=== PATIENT | female | born 1950 | race Caucasian/White ===

== ENCOUNTER 2017-08-13 02:18 | Emergency (ER) | payer MEDICARE ==
[~2017-08-13] VITALS: Ht 157.5 cm; Wt 68.7 kg
[~2017-08-13 02:18] MED LIST: SYMB160A INH
[2017-08-13 02:23] VITALS: BP 212/86; PULSE 92; RESP 14; TEMP 97.7; O2SAT 95
[2017-08-13] MEDS ORDERED: predniSONE 20 MG TAB PO ONE (02:30)
--- NOTE | 2017-08-13 02:34 | PD ---
HPI Chief Complaint: Shortness of breath Time Seen by Provider: 02:25 Travel History International Travel<30 days: No Contact w/Intl Traveler<30days: No Traveled to known affect area: No History of Present Illness HPI The patient is a 67-year-old female who presents to the emergency department for shortness of breath, cough, wheezing, and possible bronchitis. The patient has a history of COPD, states her recently had an upper respiratory infection which she recently caught. The patient now complains of productive cough producing white sputum, wheezing, and shortness of breath. The patient does have a history of bronchitis with similar symptoms in the past. The patient does have a history of COPD and tobacco use, last cigarette was at 7 PM. She denies any fever, chills, or sweats. She did receive an influenza vaccination this year. She denies any history of congestive heart failure. The patient's primary physician is Dr. Monse Dhaliwal. PFSH Past Medical History Cancer: No Cardiovascular Problems: No COPD: Yes Diabetes: No Diminished Hearing: No Endocrine: No Gastrointestinal Disorders: Yes (GERD) Glaucoma: No Genitourinary: No Hepatitis: No Hiatal Hernia: Yes Hypertension: No Immune Disorder: No Musculoskeletal: No Neurologic: No Psychiatric: No Reproductive: No Respiratory: Yes (COPD) Thyroid Disease: No Menopausal: Yes Past Surgical History Abdominal Surgery: Yes (CHOLECYSTECTOMY) AICD: No Appendectomy: Yes Cholecystectomy: Yes Gynecologic Surgery: Yes (HYSTERECTOMY) Hysterectomy: Yes Joint Replacement: No Oral Surgery: Yes (POLYP EXCISED FROM LARYNGOSCOPY) Pacemaker: No Tonsillectomy: Yes Other Surgery: Yes (BREAST BX) Social History Alcohol Use: Yes (1 GLASS OF WINE A DAY) Tobacco Use: Yes (1PPD) Substance Use: No Allergies-Medications (Allergen,Severity, Reaction): Coded Allergies: penicillin G (Unverified Allergy, Severe, HIVES, 08/13/17) codeine (Unverified Allergy, Intermediate, N&V, 08/13/17) Reported Meds & Prescriptions Reported Meds & Active Scripts Active Symbicort Inh (Budesonide/Formoterol Fumarate) 160-4.5 Mcg/Act Aero 2 Puff INH DAILY Review of Systems Except as stated in HPI: all other systems reviewed are Neg General / Constitutional: No: Fever HENT: Positive: Congestion Cardiovascular: No: Chest Pain or Discomfort Respiratory: Positive: Cough, Shortness of Breath, Wheezing Gastrointestinal: No: Nausea, Vomiting Musculoskeletal: No: Myalgias, Edema Physical Exam Narrative GENERAL: Awake, alert, nontoxic-appearing 67-year-old female who appears her stated age and is in no acute respiratory distress. SKIN: Focused skin assessment warm/dry. HEAD: Atraumatic. Normocephalic. EYES: No injection or drainage. NECK: Trachea midline. No JVD. CARDIOVASCULAR: Regular rate and rhythm. No murmur appreciated. RESPIRATORY: No accessory muscle use. Prolonged expiratory phase with a few scattered wheezes. MUSCULOSKELETAL: No obvious deformities. No clubbing. No cyanosis. No edema. NEUROLOGICAL: Awake and alert. No obvious cranial nerve deficits. Motor grossly within normal limits. Normal speech. PSYCHIATRIC: Appropriate mood and affect; insight and judgment normal. Data Data Last Documented VS Vital Signs Date Time Temp Pulse Resp B/P (MAP) Pulse Ox O2 Delivery O2 Flow Rate FiO2 08/13/17 02:47 82 20 138/92 (107) 97 08/13/17 02:23 97.7 Orders Orders Oximetry (08/13/17 02:30) Chest, Single Ap (08/13/17 02:30) Albuterol-Ipratropium Neb (Duoneb Neb) (08/13/17 02:30) Prednisone (Deltasone) (08/13/17 02:30) Polymyxin/Trimethop Opht Soln (Polytrim (08/13/17 03:45) MDM Medical Decision Making Medical Screen Exam Complete: Yes Emergency Medical Condition: Yes Medical Record Reviewed: Yes Interpretation(s) Chest x-ray reveals hyperinflation which can be seen with COPD. Chronic bibasilar densities. Differential Diagnosis Differential diagnosis includes COPD exacerbation, bronchitis, pneumonia, congestive heart failure, pleural effusion, pulmonary edema, pulmonary embolism , URI. Narrative Course The patient was administered prednisone 60 mg orally and duo nebs 2. Chest x- ray was obtained. Chest x-ray revealed hyperinflation which can be seen with COPD, chronic bibasilar densities, no acute findings. The patient was reevaluated after nebulizers at 3:36 AM. The patient's symptoms have improved. The patient will be discharged home on prednisone, Zithromax, she states she rarely has a pro-air inhaler at home. She is advised to follow-up with her primary physician. Return if symptoms worsen or progress. Diagnosis Primary Impression: Bronchitis Patient Instructions: General Instructions Additional Instructions: Medications as directed. Please provide the patient a copy of her x-ray results at discharge. Follow-up with your primary physician. Use inhalers at home. Return if symptoms worsen or progress. Med/Other Pt SpecificInfo: Prescription(s) given Scripts Prednisone (Prednisone) 20 Mg Tab 40 MG PO DAILY, #10 TAB 0 Refills Take 40 mg (2 tablets) daily for 5 days Prov: aSe Noble MD 08/13/17 Azithromycin (Zithromax Z-Gurdeep) 250 Mg Dspk 250 MG PO DIRECTED for Infection, #1 DSPK 0 Refills 500 MG (2 tabs) day 1, then 1 tab days 2-5. Prov: Sae Noble MD 08/13/17 Disposition: 01 DISCHARGE HOME Condition: Stable Sae Noble MD Aug 13, 2017 02:34
[2017-08-13] MEDS: RESP: ALBUTEROL 2.5 MG/IPRATROPIUM 0.5 MG NEB (SCH) INH ×2 (02:40→02:51)
[2017-08-13 02:47] VITALS: BP 138/92; PULSE 82; RESP 20; O2SAT 97
--- NOTE | 2017-08-13 03:32 | RADRPT ---
EXAM DATE/TIME: 08/13/2017 02:33 [facility] COMPARISON: CHEST SINGLE AP, September 11, 2013, 9:01. INDICATIONS : Shortness of breath. MEDICAL HISTORY : Chronic obstructive pulmonary disease. SURGICAL HISTORY : None. ENCOUNTER: Initial ACUITY: 1 day PAIN SCORE: 0/10 LOCATION: Bilateral chest FINDINGS: A single view of the chest demonstrates hyperinflation which can be seen with COPD. chronic bibasilar densities. Heart is normal in size. The mediastinal contours are unremarkable. Osseous structures are intact. CONCLUSION: Hyperinflation which can be seen with COPD. Chronic bibasilar densities. Deep Clay MD on August 13, 2017 at 3:29 Board Certified Radiologist. This report was verified electronically.
[2017-08-13] MEDS ORDERED: PRED20 PO (03:45)
[2017-08-13] MEDS ORDERED: POLYMYXIN/TRIMETHOPRIM OPHT SOLN 10 ML BTL LEFT EYE ONE (03:45)
[2017-08-13] MEDS ORDERED: ZITHTAB PO (03:45)
[2017-08-13 03:54] VITALS: BP 142/88
== END 2017-08-13 03:56 | disposition home or self-care (01) ==
LOC: PHED 02:18
DX: J44.9 Chronic obstructive pulmonary disease, unspecified (principal); K21.9 Gastro-esophageal reflux disease without esophagitis; F17.200 Nicotine dependence, unspecified, uncomplicated
CPT/HCPCS: 71045; 94640; 94664; 99283; J7512